=== PATIENT | female | born 1955 | race Asian ===

== ENCOUNTER 2017-04-19 02:06 | Inpatient (IN) | payer BC ==
[~2017-04-19] VITALS: Ht 165.1 cm; Wt 65.4 kg
[~2017-04-19 02:06] MED LIST: INSU100C11 SQ; METF500T4 PO
[2017-04-19] MEDS ORDERED: ACETAMINOPHEN 325MG TABLET PO STA (02:29)
[2017-04-19] MEDS ORDERED: SODIUM CHLORIDE 0.9% 1,000 ML IV ONE (02:29)
[2017-04-19 02:49] LABS: BASOPHILS % 0.4 % (0.0-2.0); EOSINOPHILS % 0.2 % (0.0-5.0); HEMATOCRIT. 31.7 % (36.0-48.0); HEMOGLOBIN. 10.6 g/dL (12.0-16.0); LYMPHOCYTES % 7.3 % (20.0-50.0); MEAN CORPUSCULAR HEMOGLOBIN 30.1 pg (28.0-32.0); MEAN CORPUSCULAR VOLUME 89.8 fL (81.0-99.0); MEAN PLATELET VOLUME 8.6 fl (7.4-10.4); MONOCYTES % 6.3 % (2.0-8.0); NEUTROPHILS % 85.8 % (40.0-76.0); PLATELET 245 x1000/uL (130-400); RED BLOOD CELL COUNT 3.53 mill/uL (4.2-5.4); RED CELL DISTRIBUTION WIDTH 13.9 % (11.6-14.6)
[2017-04-19 02:58] LABS: CHLORIDE 104 mEq/L (98-107)
[2017-04-19 03:06] LABS: CARBON DIOXIDE 18 mEq/L (21-32)
[2017-04-19 03:49] LABS: CLARITY URINE CLOUDY (CLEAR); COLOR URINE YELLOW (YELLOW); KETONES URINE TRACE (NEGATIVE); LEUKOCYTE ESTERASE URINE 2+ (NEGATIVE); NITRITE URINE NEGATIVE (NEGATIVE); OCCULT BLOOD URINE 2+ (NEGATIVE); PH URINE 5.5 (4.5-8.0); PROTEIN URINE 3+ (NEGATIVE); SPECIFIC GRAVITY URINE 1.016 (1.005-1.030); UROBILINOGEN URINE 0.2 E.U./dL (0.2-1.0)
[2017-04-19] MEDS ORDERED: CEFTRIAXONE 1 G PREMIX 50 ML IV ONE (05:15)
[2017-04-19 07:02] LABS: GLUCOSE CSF 121 mg/dL (41-75)
[2017-04-19] MEDS ORDERED: AMLO10TA4 PO (09:11)
[2017-04-19] MEDS ORDERED: LOSA25TA12 PO (09:11)
[2017-04-19] MEDS ORDERED: MAGNESIUM HYDROXIDE 400MG/5ML 30ML UDC PO PRN (09:45)
[2017-04-19] MEDS ORDERED: ONDANSETRON HCL 4MG TABLET PO PRN (09:45)
[2017-04-19] MEDS ORDERED: DEXTROSE 50% WATER 50ML SYRINGE IV PRN (10:45)
[2017-04-19] MEDS: LOSARTAN POTASSIUM 25 MG TABLET PO SCH (10:56)
[2017-04-19] MEDS: AMLODIPINE 10MG TABLET PO SCH (10:57)
[2017-04-19] MEDS ORDERED: LEVOFLOXACIN 500MG PREMIX 100 ML IV SCH (12:00)
[2017-04-19] MEDS: ACETAMINOPHEN 325MG TABLET PO PRN ×2 (12:09→20:13)
[2017-04-19] MEDS: BLOOD SUGAR DIAGNOSTIC STRIP TEST SCH ×3 (12:11→20:17)
[2017-04-19] MEDS ORDERED: INSULIN LISPRO 100 UNITS/ML SUBCUT SCH (13:10)
[2017-04-19 14:28] LABS: CLARITY URINE CLOUDY (CLEAR); COLOR URINE YELLOW (YELLOW); KETONES URINE NEGATIVE (NEGATIVE); LEUKOCYTE ESTERASE URINE 2+ (NEGATIVE); NITRITE URINE POSITIVE (NEGATIVE); OCCULT BLOOD URINE 2+ (NEGATIVE); PH URINE 5.5 (4.5-8.0); PROTEIN URINE 2+ (NEGATIVE); SPECIFIC GRAVITY URINE 1.016 (1.005-1.030); UROBILINOGEN URINE 0.2 E.U./dL (0.2-1.0)
[2017-04-19] MEDS: METFORMIN HCL 500MG TABLET PO SCH (17:46)
[2017-04-19] MEDS: INSULIN LISPRO 100 UNITS/ML SUBCUT SCH ×2 (17:47→20:42)
[2017-04-19] MEDS: SODIUM CHL 0.45% + KCL 20MEQ/L 1,000 ML IV SCH (17:47)
[2017-04-19] MEDS ORDERED: VANCOMYCIN 1,250 MG in DEXT 5% WATER 250 ML IV SCH (18:45)
[2017-04-19] MEDS: ZOLPIDEM TARTRATE 5MG TABLET PO PRN (21:21)
[2017-04-20] MEDS: ACETAMINOPHEN 325MG TABLET PO PRN ×3 (04:55→20:39)
[2017-04-20] MEDS: SODIUM CHL 0.45% + KCL 20MEQ/L 1,000 ML IV SCH ×2 (04:56→20:25)
[2017-04-20 06:04] LABS: BASOPHILS % 0.5 % (0.0-2.0); EOSINOPHILS % 0.5 % (0.0-5.0); HEMATOCRIT. 28.7 % (36.0-48.0); HEMOGLOBIN. 9.7 g/dL (12.0-16.0); LYMPHOCYTES % 11.7 % (20.0-50.0); MEAN CORPUSCULAR HEMOGLOBIN 30.4 pg (28.0-32.0); MEAN PLATELET VOLUME 9.2 fl (7.4-10.4); MONOCYTES % 9.7 % (2.0-8.0); NEUTROPHILS % 77.6 % (40.0-76.0); PLATELET 229 x1000/uL (130-400); RED BLOOD CELL COUNT 3.18 mill/uL (4.2-5.4)
[2017-04-20] MEDS: BLOOD SUGAR DIAGNOSTIC STRIP TEST SCH ×4 (07:03→20:33)
[2017-04-20] MEDS: INSULIN LISPRO 100 UNITS/ML SUBCUT SCH ×4 (08:10→20:38)
[2017-04-20] MEDS: METFORMIN HCL 500MG TABLET PO SCH (08:40)
[2017-04-20] MEDS: AMLODIPINE 10MG TABLET PO SCH (08:40)
[2017-04-20] MEDS: LOSARTAN POTASSIUM 25 MG TABLET PO SCH (08:40)
[2017-04-20 09:26] LABS: CHLORIDE 109 mEq/L (98-107)
[2017-04-20 09:42] LABS: CARBON DIOXIDE 19 mEq/L (21-32); HDL CHOLESTEROL 29 mg/dL (40-59); LDL CHOLESTEROL 113 mg/dL (5-100); T4 FREE 1.16 ng/dL (0.76-1.46); TOTAL IRON BINDING CAPACITY 134 ug/dL (250-450)
[2017-04-20] MEDS ORDERED: ALPRAZOLAM 0.5 MG TABLET PO PRN (10:45)
[2017-04-20] MEDS ORDERED: MAGNESIUM 4 G PREMIX 100 ML IV NR (11:00)
[2017-04-20 11:15] LABS: BG BASE EXCESS -13.3 mmol/L (-2.0-2.0); BG CARBOXYHEMOGLOBIN 0.3 % (0.5-1.5); BG FRACTION INSPIRED OXYGEN 100; BG HCO3 ACT 13.3 mmol/L (22.0-26.0); BG METHEMOGLOBIN 0.3 % (0.0-1.5); BG OXYHEMOGLOBIN 98.4 % (94.0-97.0); BG PCO2 33.2 mmHg (35.0-45.0); BG PO2 223.3 mmHg (75.0-100.0); BG SAMPLE SITE RIGHT RADIAL; BG VENT MODE MASK - NRB
[2017-04-20] MEDS ORDERED: DIATR MEGLU/DIATRIZOATE SOLN 30ML PO NR (11:30)
[2017-04-20] MEDS ORDERED: SODIUM BICARBONATE 8.4% 1 MEQ/ML 50ML SYR IV NR (11:39)
[2017-04-20] MEDS ORDERED: LEVOFLOXACIN 250MG PREMIX 50 ML IV SCH (12:00)
[2017-04-20] MEDS ORDERED: VANCOMYCIN 750 MG PREMIX 150 ML IV SCH (12:00)
[2017-04-20] MEDS ORDERED: POTASSIUM PHOS,M-BASIC-D-BASIC 30 MMOL in DEXT 5% WATER 500 ML IV NR (12:00)
[2017-04-20] MEDS: CEFAZOLIN 1000MG PREMIX 50 ML IV SCH ×2 (13:56→20:23)
[2017-04-20 21:18] LABS: HEMATOCRIT. 25.6 % (36.0-48.0); HEMOGLOBIN. 8.7 g/dL (12.0-16.0); MEAN CORPUSCULAR HEMOGLOBIN 30.1 pg (28.0-32.0); MEAN CORPUSCULAR VOLUME 88.2 fL (81.0-99.0); PLATELET 199 x1000/uL (130-400); RED CELL DISTRIBUTION WIDTH 14.1 % (11.6-14.6)
[2017-04-20 21:37] LABS: AMMONIA 31 uMol/L (<32)
[2017-04-20 21:47] LABS: CLARITY URINE CLEAR (CLEAR); COLOR URINE YELLOW (YELLOW); KETONES URINE NEGATIVE (NEGATIVE); LEUKOCYTE ESTERASE URINE TRACE (NEGATIVE); NITRITE URINE NEGATIVE (NEGATIVE); OCCULT BLOOD URINE 1+ (NEGATIVE); PROTEIN URINE 2+ (NEGATIVE); SPECIFIC GRAVITY URINE 1.011 (1.005-1.030); UROBILINOGEN URINE 0.2 E.U./dL (0.2-1.0)
[2017-04-20] MEDS: ZOLPIDEM TARTRATE 5MG TABLET PO PRN (21:47)
[2017-04-20 21:56] LABS: PLATELET ESTIMATE NORMAL
[2017-04-20] MEDS ORDERED: INSULIN DETEMIR UD 100 UNITS/ML SYR SUBCUT SCH (22:00)
[2017-04-21] MEDS: SODIUM CHL 0.45% + KCL 20MEQ/L 1,000 ML IV SCH ×3 (01:00→20:16)
[2017-04-21] MEDS: ACETAMINOPHEN 325MG TABLET PO PRN ×4 (03:10→21:45)
[2017-04-21] MEDS: CEFAZOLIN 1000MG PREMIX 50 ML IV SCH (03:13)
[2017-04-21 07:10] LABS: BASOPHILS % 0.4 % (0.0-2.0); EOSINOPHILS % 0.6 % (0.0-5.0); HEMATOCRIT. 26.5 % (36.0-48.0); HEMOGLOBIN. 8.9 g/dL (12.0-16.0); LYMPHOCYTES % 14.1 % (20.0-50.0); MEAN CORPUSCULAR HEMOGLOBIN 29.5 pg (28.0-32.0); MEAN CORPUSCULAR VOLUME 87.8 fL (81.0-99.0); MONOCYTES % 14.6 % (2.0-8.0); NEUTROPHILS % 70.3 % (40.0-76.0); PLATELET 228 x1000/uL (130-400); RED BLOOD CELL COUNT 3.02 mill/uL (4.2-5.4); RED CELL DISTRIBUTION WIDTH 14.1 % (11.6-14.6)
[2017-04-21] MEDS: INSULIN LISPRO 100 UNITS/ML SUBCUT SCH ×4 (08:00→21:31)
[2017-04-21] MEDS: BLOOD SUGAR DIAGNOSTIC STRIP TEST SCH ×4 (08:00→20:40)
[2017-04-21 08:31] LABS: CARBON DIOXIDE 22 mEq/L (21-32); CHLORIDE 106 mEq/L (98-107); PHOSPHORUS 3.3 mg/dL (2.5-4.9)
[2017-04-21 08:34] LABS: HDL CHOLESTEROL 20 mg/dL (40-59); LDL CHOLESTEROL 87 mg/dL (5-100)
[2017-04-21] MEDS: LOSARTAN POTASSIUM 25 MG TABLET PO SCH (09:12)
[2017-04-21] MEDS: AMLODIPINE 10MG TABLET PO SCH (09:13)
[2017-04-21 09:50] LABS: BG BASE EXCESS -2.1 mmol/L (-2.0-2.0); BG CARBOXYHEMOGLOBIN 0.3 % (0.5-1.5); BG DEOXYHEMOGLOBIN 11.4 % (0.0-5.0); BG FRACTION INSPIRED OXYGEN 21; BG HCO3 ACT 20.5 mmol/L (22.0-26.0); BG METHEMOGLOBIN 0.3 % (0.0-1.5); BG OXYGEN SATURATION 88.5 % (92.0-98.5); BG PCO2 27.9 mmHg (35.0-45.0); BG PH 7.484 (7.350-7.450); BG SAMPLE SITE RIGHT RADIAL; BG TOTAL HEMOGLOBIN 10.3 g/dL (12.0-18.0); BG VENT MODE ROOM AIR
[2017-04-21] MEDS ORDERED: LEVOFLOXACIN 750MG PREMIX 150 ML IV SCH (13:00)
[2017-04-21] MEDS: MORPHINE SULFATE 2 MG/ML CPJ (NOT FOR IM USE) IV PRN ×2 (13:08→19:05)
[2017-04-21] MEDS ORDERED: IPRATROPIUM/ALBUTEROL 0.5-3(2.5)MG/3ML NEB HHN PRN (13:30)
[2017-04-21] MEDS ORDERED: VANCOMYCIN 1250MG in DEXTROSE 5% WATER 250ML IV SCH (15:00)
[2017-04-21] MEDS: PIPERACILLIN/TAZ 3.375G PREMIX 50 ML IV SCH (17:39)
[2017-04-21] MEDS: IPRATROPIUM/ALBUTEROL 0.5-3(2.5)MG/3ML NEB HHN SCH (20:37)
[2017-04-21] MEDS: ATORVASTATIN CALCIUM 20MG TABLET PO SCH (21:29)
[2017-04-21] MEDS: INSULIN DETEMIR UD 100 UNITS/ML SYR SUBCUT SCH (21:33)
[2017-04-21] MEDS: VANCOMYCIN 750 MG PREMIX 150 ML IV SCH (23:28)
[2017-04-22] MEDS: PIPERACILLIN/TAZ 3.375G PREMIX 50 ML IV SCH ×2 (00:33→06:27)
[2017-04-22] MEDS: IPRATROPIUM/ALBUTEROL 0.5-3(2.5)MG/3ML NEB HHN SCH ×3 (01:29→20:47)
[2017-04-22] MEDS: MORPHINE SULFATE 2 MG/ML CPJ (NOT FOR IM USE) IV PRN ×2 (01:52→11:06)
[2017-04-22] MEDS ORDERED: DILTIAZEM HCL 125 MG in DEXT 5% WATER 100 ML IV SCH (06:30)
[2017-04-22 06:37] LABS: BG BASE EXCESS -1.2 mmol/L (-2.0-2.0); BG CARBOXYHEMOGLOBIN 0.1 % (0.5-1.5); BG DEOXYHEMOGLOBIN 4.7 % (0.0-5.0); BG FRACTION INSPIRED OXYGEN 100; BG HCO3 ACT 21.8 mmol/L (22.0-26.0); BG METHEMOGLOBIN 0.3 % (0.0-1.5); BG OXYGEN SATURATION 95.3 % (92.0-98.5); BG OXYHEMOGLOBIN 94.9 % (94.0-97.0); BG PCO2 30.4 mmHg (35.0-45.0); BG PH 7.474 (7.350-7.450); BG PO2 82.4 mmHg (75.0-100.0); BG SAMPLE SITE LEFT RADIAL; BG VENT MODE MASK - NRB
[2017-04-22 07:03] LABS: BASOPHILS % 0.7 % (0.0-2.0); EOSINOPHILS % 1.6 % (0.0-5.0); HEMATOCRIT. 26.6 % (36.0-48.0); HEMOGLOBIN. 9.1 g/dL (12.0-16.0); LYMPHOCYTES % 18.5 % (20.0-50.0); MEAN PLATELET VOLUME 8.8 fl (7.4-10.4); MONOCYTES % 12.7 % (2.0-8.0); NEUTROPHILS % 66.5 % (40.0-76.0); PLATELET 270 x1000/uL (130-400); RED BLOOD CELL COUNT 3.02 mill/uL (4.2-5.4); RED CELL DISTRIBUTION WIDTH 14.3 % (11.6-14.6)
[2017-04-22] MEDS: INSULIN LISPRO 100 UNITS/ML SUBCUT SCH ×4 (07:36→22:10)
[2017-04-22] MEDS: BLOOD SUGAR DIAGNOSTIC STRIP TEST SCH ×4 (07:36→21:00)
[2017-04-22] MEDS: ACETAMINOPHEN 325MG TABLET PO PRN ×3 (08:50→22:13)
[2017-04-22] MEDS: VANCOMYCIN 750 MG PREMIX 150 ML IV SCH (08:50)
[2017-04-22] MEDS: LOSARTAN POTASSIUM 25 MG TABLET PO SCH (08:51)
[2017-04-22] MEDS: AMLODIPINE 10MG TABLET PO SCH (08:51)
[2017-04-22] MEDS ORDERED: MEROPENEM 1,000 MG in SODIUM CHLORIDE 0.9% 100 ML IV SCH (11:00)
[2017-04-22] MEDS: PANTOPRAZOLE SODIUM 40 MG/VIAL IV SCH (11:03)
[2017-04-22] MEDS ORDERED: FUROSEMIDE 40MG/4ML VIAL IVP NR (11:30)
[2017-04-22] MEDS ORDERED: DIGOXIN 500MCG/2ML AMP IV NR (11:30)
[2017-04-22] MEDS ORDERED: ENOXAPARIN 80MG/0.8ML SYR SUBCUT SCH (12:00)
[2017-04-22] MEDS: CEFAZOLIN 1000MG PREMIX 50 ML IV SCH ×2 (12:13→20:10)
[2017-04-22 13:13] LABS: TROPONIN I 0.86 ng/mL (0.00-0.04)
[2017-04-22] MEDS: ASPIRIN 81MG EC TABLET PO SCH ×2 (14:47→17:01)
[2017-04-22] MEDS: DILTIAZEM HCL 30MG TABLET PO SCH (17:01)
[2017-04-22] MEDS: SODIUM CHL 0.45% + KCL 20MEQ/L 1,000 ML IV SCH (18:26)
[2017-04-22] MEDS: ATORVASTATIN CALCIUM 20MG TABLET PO SCH (20:11)
[2017-04-22] MEDS: INSULIN DETEMIR UD 100 UNITS/ML SYR SUBCUT SCH (22:11)
[2017-04-22] MEDS: ZOLPIDEM TARTRATE 5MG TABLET PO PRN (22:11)
[2017-04-23 04:43] LABS: BASOPHILS % 0.7 % (0.0-2.0); EOSINOPHILS % 3.8 % (0.0-5.0); HEMOGLOBIN. 9.3 g/dL (12.0-16.0); LYMPHOCYTES % 24.2 % (20.0-50.0); MEAN CORPUSCULAR HEMOGLOBIN 30.2 pg (28.0-32.0); MEAN PLATELET VOLUME 8.5 fl (7.4-10.4); MONOCYTES % 12.6 % (2.0-8.0); NEUTROPHILS % 58.7 % (40.0-76.0); PLATELET 313 x1000/uL (130-400); RED BLOOD CELL COUNT 3.07 mill/uL (4.2-5.4); RED CELL DISTRIBUTION WIDTH 14.4 % (11.6-14.6)
[2017-04-23] MEDS: CEFAZOLIN 1000MG PREMIX 50 ML IV SCH ×3 (04:48→22:09)
[2017-04-23 05:12] LABS: CARBON DIOXIDE 26 mEq/L (21-32); CHLORIDE 106 mEq/L (98-107); CREATINE KINASE 23 IU/L (26-192); CREATINE KINASE MB FRACTION < 0.5 ng/mL (0.5-3.6)
[2017-04-23] MEDS: INSULIN LISPRO 100 UNITS/ML SUBCUT SCH ×4 (06:46→20:45)
[2017-04-23] MEDS: BLOOD SUGAR DIAGNOSTIC STRIP TEST SCH ×4 (06:47→20:47)
[2017-04-23] MEDS: DILTIAZEM HCL 30MG TABLET PO SCH ×4 (06:52→17:23)
[2017-04-23] MEDS ORDERED: POTASSIUM CHLORIDE 20MEQ TABLET SR PO NR (07:45)
[2017-04-23] MEDS: AMLODIPINE 10MG TABLET PO SCH (08:14)
[2017-04-23] MEDS: LOSARTAN POTASSIUM 25 MG TABLET PO SCH (08:14)
[2017-04-23] MEDS: PANTOPRAZOLE SODIUM 40 MG/VIAL IV SCH (08:14)
[2017-04-23] MEDS: ASPIRIN 81MG EC TABLET PO SCH ×2 (08:14→17:23)
[2017-04-23] MEDS: IPRATROPIUM/ALBUTEROL 0.5-3(2.5)MG/3ML NEB HHN SCH ×4 (08:21→21:31)
[2017-04-23] MEDS: ENOXAPARIN 40MG/0.4ML SYR SUBCUT SCH (08:29)
[2017-04-23] MEDS: ACETAMINOPHEN 325MG TABLET PO PRN ×3 (08:30→22:10)
[2017-04-23] MEDS ORDERED: ENOXAPARIN 40MG/0.4ML SYR SUBCUT SCH (09:30)
[2017-04-23] MEDS ORDERED: CLONIDINE 0.1MG TABLET PO PRN (10:15)
[2017-04-23] MEDS ORDERED: MORPHINE SULFATE 4 MG/ML CPJ (NOT FOR IM USE) IV PRN (20:12)
[2017-04-23] MEDS: ATORVASTATIN CALCIUM 20MG TABLET PO SCH (20:31)
[2017-04-23] MEDS: INSULIN DETEMIR UD 100 UNITS/ML SYR SUBCUT SCH (20:46)
[2017-04-23] MEDS: ZOLPIDEM TARTRATE 5MG TABLET PO PRN (22:09)
[2017-04-24] MEDS: DILTIAZEM HCL 30MG TABLET PO SCH ×4 (00:13→18:29)
[2017-04-24] MEDS: IPRATROPIUM/ALBUTEROL 0.5-3(2.5)MG/3ML NEB HHN SCH ×4 (01:27→21:23)
[2017-04-24] MEDS: CEFAZOLIN 1000MG PREMIX 50 ML IV SCH ×3 (04:37→21:37)
[2017-04-24] MEDS: BLOOD SUGAR DIAGNOSTIC STRIP TEST SCH ×4 (06:00→21:42)
[2017-04-24] MEDS: INSULIN LISPRO 100 UNITS/ML SUBCUT SCH ×4 (06:00→21:53)
[2017-04-24 06:19] LABS: BASOPHILS % 1.2 % (0.0-2.0); EOSINOPHILS % 4.2 % (0.0-5.0); HEMATOCRIT. 28.5 % (36.0-48.0); HEMOGLOBIN. 9.7 g/dL (12.0-16.0); LYMPHOCYTES % 26.2 % (20.0-50.0); MEAN CORPUSCULAR HEMOGLOBIN 30.1 pg (28.0-32.0); MEAN CORPUSCULAR VOLUME 88.8 fL (81.0-99.0); MEAN PLATELET VOLUME 7.8 fl (7.4-10.4); MONOCYTES % 10.5 % (2.0-8.0); NEUTROPHILS % 57.9 % (40.0-76.0); PLATELET 434 x1000/uL (130-400); RED CELL DISTRIBUTION WIDTH 14.3 % (11.6-14.6)
[2017-04-24 07:50] LABS: TROPONIN I 0.41 ng/mL (0.00-0.04)
[2017-04-24] MEDS: ENOXAPARIN 40MG/0.4ML SYR SUBCUT SCH (08:46)
[2017-04-24] MEDS: PANTOPRAZOLE SODIUM 40 MG/VIAL IV SCH (08:46)
[2017-04-24] MEDS: ASPIRIN 81MG EC TABLET PO SCH ×2 (08:47→16:47)
[2017-04-24] MEDS: LOSARTAN POTASSIUM 25 MG TABLET PO SCH (08:47)
[2017-04-24] MEDS: AMLODIPINE 10MG TABLET PO SCH (08:47)
[2017-04-24] MEDS: ACETAMINOPHEN 325MG TABLET PO PRN ×3 (08:51→21:37)
[2017-04-24] MEDS: ATORVASTATIN CALCIUM 20MG TABLET PO SCH (21:37)
[2017-04-24] MEDS: INSULIN DETEMIR UD 100 UNITS/ML SYR SUBCUT SCH (21:42)
[2017-04-24] MEDS ORDERED: ZOLPIDEM TARTRATE 5MG TABLET PO PRN (21:45)
[2017-04-25] MEDS: IPRATROPIUM/ALBUTEROL 0.5-3(2.5)MG/3ML NEB HHN SCH ×3 (01:30→13:29)
[2017-04-25] MEDS: CEFAZOLIN 1000MG PREMIX 50 ML IV SCH ×2 (04:12→12:44)
[2017-04-25] MEDS: DILTIAZEM HCL 30MG TABLET PO SCH ×4 (04:12→17:54)
[2017-04-25] MEDS: ACETAMINOPHEN 325MG TABLET PO PRN ×2 (06:08→14:56)
[2017-04-25] MEDS: INSULIN LISPRO 100 UNITS/ML SUBCUT SCH ×3 (06:20→17:59)
[2017-04-25] MEDS: BLOOD SUGAR DIAGNOSTIC STRIP TEST SCH ×3 (06:20→17:08)
[2017-04-25 07:33] LABS: HEMATOCRIT. 29.9 % (36.0-48.0); MEAN CORPUSCULAR HEMOGLOBIN 29.8 pg (28.0-32.0); MEAN CORPUSCULAR VOLUME 88.9 fL (81.0-99.0); MEAN PLATELET VOLUME 7.6 fl (7.4-10.4); PLATELET 501 x1000/uL (130-400); RED BLOOD CELL COUNT 3.36 mill/uL (4.2-5.4); RED CELL DISTRIBUTION WIDTH 14.4 % (11.6-14.6)
[2017-04-25] MEDS: PANTOPRAZOLE SODIUM 40 MG/VIAL IV SCH (09:24)
[2017-04-25] MEDS: ENOXAPARIN 40MG/0.4ML SYR SUBCUT SCH (09:25)
[2017-04-25] MEDS: ASPIRIN 81MG EC TABLET PO SCH ×2 (09:29→17:58)
[2017-04-25] MEDS: LOSARTAN POTASSIUM 25 MG TABLET PO SCH (09:29)
[2017-04-25] MEDS: AMLODIPINE 10MG TABLET PO SCH (09:32)
[2017-04-25 12:55] LABS: PLATELET ESTIMATE INCREASED
[2017-04-25 18:30] VITALS: BP 128/88
[2017-04-26] MEDS ORDERED: FAMOTIDINE 20MG/2ML VIAL IV SCH (09:00)
== END 2017-04-25 19:00 | disposition home health service (06) | DRG 871 ==
LOC: ER 02:06 → EDBEDREQ 05:39 → 7WST 06:00 → ENRESERV 07:10 → 5EST 04-20 11:39 → MICUSO 04-22 07:56 → 5WST 04-23 12:45
PROVIDERS: ADMIT Internal Medicine; ATTEND Internal Medicine
PROC: 009U3ZZ Drainage of Spinal Canal, Percutaneous Approach (ICD-10-PCS; principal; 2017-04-19)
PROC: 02HV33Z Insertion of Infusion Device into Superior Vena Cava, Percutaneous Approach (ICD-10-PCS; 2017-04-22)
PROC: B548ZZA Ultrasonography of Superior Vena Cava, Guidance (ICD-10-PCS; 2017-04-22)
DX: A41.51 Sepsis due to Escherichia coli [E. coli] (principal); E43 Unspecified severe protein-calorie malnutrition; J18.1 Lobar pneumonia, unspecified organism; E87.2 Acidosis; J81.1 Chronic pulmonary edema; J90 Pleural effusion, not elsewhere classified; N12 Tubulo-interstitial nephritis, not specified as acute or chronic; D64.9 Anemia, unspecified; E11.65 Type 2 diabetes mellitus with hyperglycemia; I34.0 Nonrheumatic mitral (valve) insufficiency; E11.69 Type 2 diabetes mellitus with other specified complication; E78.5 Hyperlipidemia, unspecified; N28.9 Disorder of kidney and ureter, unspecified; R65.20 Severe sepsis without septic shock; E87.6 Hypokalemia; E87.70 Fluid overload, unspecified; I10 Essential (primary) hypertension; I48.0 Paroxysmal atrial fibrillation; K76.0 Fatty (change of) liver, not elsewhere classified; Z79.84 Long term (current) use of oral hypoglycemic drugs; Z79.899 Other long term (current) drug therapy; Z91.14 Patient's other noncompliance with medication regimen; Z68.24 Body mass index [BMI] 24.0-24.9, adult
CPT/HCPCS: 36415; 36569; 36600; 70450; 70544; 70553; 71010; 74176; 76700; 76856; 76937; 78580; 80048; 80053; 80061; 80076; 81001; 82140; 82248; 82375; 82550; 82553; 82805; 82945; 82962; 83036; 83540; 83550; 83605; 83735; 83880; 84100; 84157; 84439; 84443; 84481; 84484; 84550; 85007; 85025; 85027; 85379; 85651; 87040; 87070; 87077; 87086; 87186; 87205; 89050; 93005; 93306; 93970; 94640; 96361; 96365; 97162; 99291; C1725; C9113; J0690; J0696; J1160; J1650; J1815; J1940; J1956; J2185; J2270; J2543; J3370; J3475; J3480; J3490; J7030; J7040; J7050; J7060; J7620; Q9963

== ENCOUNTER → 2017-05-13 | Outpatient (CLI) | payer BC ==
[~2017-05-13] MED LIST changes: +AMLO10TA4 PO; -INSU100C11 SQ; +LOSA25TA12 PO
[2017-05-13 12:43] LABS: BASOPHILS % 1.2 % (0.0-2.0); EOSINOPHILS % 6.1 % (0.0-5.0); HEMATOCRIT. 32.7 % (36.0-48.0); LYMPHOCYTES % 30.9 % (20.0-50.0); MEAN CORPUSCULAR HEMOGLOBIN 30.6 pg (28.0-32.0); MEAN CORPUSCULAR VOLUME 91.1 fL (81.0-99.0); MEAN PLATELET VOLUME 8.6 fl (7.4-10.4); MONOCYTES % 6.7 % (2.0-8.0); NEUTROPHILS % 55.1 % (40.0-76.0); PLATELET 332 x1000/uL (130-400); RED BLOOD CELL COUNT 3.58 mill/uL (4.2-5.4); RED CELL DISTRIBUTION WIDTH 15.1 % (11.6-14.6)
[2017-05-13 13:26] LABS: CARBON DIOXIDE 23 mEq/L (21-32); CHLORIDE 106 mEq/L (98-107); HDL CHOLESTEROL 61 mg/dL (40-59); LDL CHOLESTEROL 94 mg/dL (5-100)
== END | disposition home or self-care (01) ==
LOC: LAB 12:08
PROVIDERS: ATTEND Pathology Anatomic Pathology & Clinical Pathology
DX: I10 Essential (primary) hypertension (principal); E11.9 Type 2 diabetes mellitus without complications; E78.2 Mixed hyperlipidemia
CPT/HCPCS: 36415; 80053; 80061; 82248; 82306; 83036; 84439; 84443; 85025

== ENCOUNTER → 2018-01-21 | Outpatient (CLI) | payer BC ==
[2018-01-21 09:52] LABS: HEMATOCRIT. 35.7 % (36.0-48.0); HEMOGLOBIN. 12.4 g/dL (12.0-16.0); LYMPHOCYTES % 26.5 % (20.0-50.0); MEAN CORPUSCULAR HEMOGLOBIN 30.1 pg (28.0-32.0); MEAN CORPUSCULAR VOLUME 87.1 fL (81.0-99.0); MEAN PLATELET VOLUME 7.5 fl (7.4-10.4); NEUTROPHILS % 59.5 % (40.0-76.0); PLATELET 479 x1000/uL (130-400); RED CELL DISTRIBUTION WIDTH 13.9 % (11.6-14.6)
[2018-01-21 10:24] LABS: CHLORIDE 104 mEq/L (98-107)
[2018-01-21 10:39] LABS: HDL CHOLESTEROL 63 mg/dL (40-59); LDL CHOLESTEROL 162 mg/dL (5-100); T4 FREE 1.09 ng/dL (0.76-1.46)
[2018-01-21 10:56] LABS: KETONES URINE NEGATIVE (NEGATIVE); LEUKOCYTE ESTERASE URINE NEGATIVE (NEGATIVE); NITRITE URINE NEGATIVE (NEGATIVE); OCCULT BLOOD URINE TRACE (NEGATIVE); PROTEIN URINE 3+ (NEGATIVE); SPECIFIC GRAVITY URINE 1.015 (1.005-1.030); UROBILINOGEN URINE 0.2 E.U./dL (0.2-1.0)
[2018-01-21 11:25] LABS: CLARITY URINE CLOUDY (CLEAR)
[2018-01-21 11:32] LABS: COLOR URINE YELLOW (YELLOW)
[2018-01-22 13:07] LABS: *CREATININE RANDOM URINE 69.5 mg/dL (Not Estab.); MICROALBUMIN RANDOM URINE 3268.8 ug/mL (Not Estab.)
== END | disposition home or self-care (01) ==
LOC: LAB 09:14
PROVIDERS: ATTEND Internal Medicine
DX: J18.9 Pneumonia, unspecified organism (principal); D71 Functional disorders of polymorphonuclear neutrophils; E11.9 Type 2 diabetes mellitus without complications
CPT/HCPCS: 36415; 71046; 80053; 80061; 81003; 82043; 82248; 82570; 83036; 84439; 84443; 85025

== ENCOUNTER 2018-10-17 13:17 | Inpatient (IN) | payer BC ==
[~2018-10-17] VITALS: Ht 165.1 cm; Wt 60.8 kg
[~2018-10-17 13:17] MED LIST changes: +METF-414 PO; -METF500T4 PO
[2018-10-17] MEDS ORDERED: SODIUM CHLORIDE 0.9% 1000ML BAG (SEPSIS BOLUS) IV ONE (14:15)
[2018-10-17 14:55] LABS: BASOPHILS % 0.4 % (0.0-2.0); EOSINOPHILS % 0.5 % (0.0-5.0); LYMPHOCYTES % 15.8 % (20.0-50.0); MEAN CORPUSCULAR HEMOGLOBIN 29.8 pg (28.0-32.0); MEAN CORPUSCULAR VOLUME 89.3 fL (81.0-99.0); MEAN PLATELET VOLUME 8.8 fl (7.4-10.4); NEUTROPHILS % 72.3 % (40.0-76.0); PLATELET 308 x1000/uL (130-400); RED CELL DISTRIBUTION WIDTH 13.8 % (11.6-14.6)
[2018-10-17 14:58] LABS: CHLORIDE 99 mEq/L (98-107)
[2018-10-17 15:00] LABS: PARTIAL THROMBOPLASTIN TIME 36.2 sec (23.4-31.0); PROTHROMBIN TIME 10.1 sec (9.1-11.1)
[2018-10-17 15:14] LABS: CLARITY URINE TURBID (CLEAR); COLOR URINE YELLOW (YELLOW); KETONES URINE TRACE (NEGATIVE); LEUKOCYTE ESTERASE URINE 2+ (NEGATIVE); NITRITE URINE NEGATIVE (NEGATIVE); OCCULT BLOOD URINE 2+ (NEGATIVE); PH URINE 5.5 (4.5-8.0); PROTEIN URINE 4+ (NEGATIVE); SPECIFIC GRAVITY URINE 1.031 (1.005-1.030); UROBILINOGEN URINE 0.2 E.U./dL (0.2-1.0)
[2018-10-17] MEDS ORDERED: LEVOFLOXACIN 750MG PREMIX 150 ML IV ONE (17:15)
[2018-10-17 21:20] VITALS: BP 147/69
[2018-10-17 22:00] VITALS: BP 147/69
[2018-10-17] MEDS ORDERED: DIPHENHYDRAMINE 50MG/ML VIAL IV PRN (23:00)
[2018-10-17] MEDS ORDERED: DOCUSATE SODIUM 100MG CAPSULE PO PRN (23:00)
[2018-10-17] MEDS ORDERED: ONDANSETRON HCL 4MG/2ML INJ IV PRN (23:00)
[2018-10-17] MEDS ORDERED: MAGNESIUM/ALUMINUM HYDROXIDE/SIMETHICONE 30ML UDC PO PRN (23:00)
[2018-10-17] MEDS ORDERED: LEVOFLOXACIN 500MG PREMIX 100 ML IV SCH (23:00)
[2018-10-17] MEDS ORDERED: CLONIDINE 0.1MG TABLET PO PRN (23:00)
[2018-10-17] MEDS ORDERED: DEXT 5%/0.45% NACL 1000ML 1,000 ML IV SCH (23:13)
[2018-10-18] VITALS (7 sets, daily range): BP systolic 104–174; BP diastolic 56–97
[2018-10-18] MEDS ORDERED: DEXTROSE 50% WATER 50ML SYRINGE IV PRN
[2018-10-18] MEDS: ACETAMINOPHEN 325MG TABLET PO PRN ×3 (00:15→19:16)
[2018-10-18] MEDS ORDERED: METF-416 PO (02:38)
[2018-10-18] MEDS ORDERED: INSU300I3 SQ (02:38)
[2018-10-18] MEDS ORDERED: LOSA100T14 PO (02:38)
[2018-10-18 06:56] LABS: HEMATOCRIT. 28.8 % (36.0-48.0); HEMOGLOBIN. 9.8 g/dL (12.0-16.0); MEAN CORPUSCULAR HEMOGLOBIN 30.1 pg (28.0-32.0); MEAN CORPUSCULAR VOLUME 88.9 fL (81.0-99.0); MEAN PLATELET VOLUME 9.1 fl (7.4-10.4); PLATELET 270 x1000/uL (130-400); RED BLOOD CELL COUNT 3.24 mill/uL (4.2-5.4); RED CELL DISTRIBUTION WIDTH 13.8 % (11.6-14.6)
[2018-10-18] MEDS: BLOOD SUGAR DIAGNOSTIC STRIP TEST SCH ×4 (07:00→21:28)
[2018-10-18] MEDS: INSULIN LISPRO 100 UNITS/ML SUBCUT SCH ×4 (08:53→21:00)
[2018-10-18] MEDS ORDERED: ENOXAPARIN 40MG/0.4ML SYR SUBCUT SCH (09:00)
[2018-10-18] MEDS ORDERED: ENOXAPARIN 30MG/0.3ML SYR SUBCUT SCH (09:00)
[2018-10-18] MEDS ORDERED: PNEUMOCOCCAL 23-VAL P-SAC VAC 0.5 ML IM ONE (12:00)
[2018-10-18 12:20] LABS: PLATELET ESTIMATE NORMAL
[2018-10-18] MEDS: DEXT 5%/0.45% NACL 1000ML 1,000 ML IV SCH (13:34)
[2018-10-18] MEDS: CEFTAZIDIME PENTAHYDRATE 1 G in DEXTROSE 5% WATER 50 ML IV SCH (15:58)
[2018-10-18] MEDS ORDERED: LEVOFLOXACIN 250MG PREMIX 50 ML IV SCH (17:00)
[2018-10-19] VITALS (7 sets, daily range): BP systolic 106–156; BP diastolic 57–97
[2018-10-19] MEDS: CEFTAZIDIME PENTAHYDRATE 1 G in DEXTROSE 5% WATER 50 ML IV SCH ×3 (00:35→20:52)
[2018-10-19] MEDS: DEXT 5%/0.45% NACL 1000ML 1,000 ML IV SCH ×2 (03:57→18:16)
[2018-10-19] MEDS: BLOOD SUGAR DIAGNOSTIC STRIP TEST SCH ×4 (06:15→21:00)
[2018-10-19 07:27] LABS: BASOPHILS % 0.8 % (0.0-2.0); EOSINOPHILS % 2.4 % (0.0-5.0); HEMATOCRIT. 28.4 % (36.0-48.0); HEMOGLOBIN. 9.6 g/dL (12.0-16.0); LYMPHOCYTES % 13.2 % (20.0-50.0); MEAN CORPUSCULAR HEMOGLOBIN 30.1 pg (28.0-32.0); MEAN CORPUSCULAR VOLUME 89.1 fL (81.0-99.0); MONOCYTES % 10.3 % (2.0-8.0); NEUTROPHILS % 73.3 % (40.0-76.0); PLATELET 299 x1000/uL (130-400); RED BLOOD CELL COUNT 3.18 mill/uL (4.2-5.4); RED CELL DISTRIBUTION WIDTH 13.8 % (11.6-14.6)
[2018-10-19] MEDS: ENOXAPARIN 40MG/0.4ML SYR SUBCUT SCH (10:38)
[2018-10-19] MEDS: INSULIN LISPRO 100 UNITS/ML SUBCUT SCH ×4 (10:42→21:00)
[2018-10-19] MEDS ORDERED: INSULIN GLARGINE UD 100 UNITS/ML SYR SUBCUT NR (11:30)
[2018-10-19] MEDS: LOSARTAN POTASSIUM 100 MG TABLET PO SCH (11:38)
[2018-10-19] MEDS: AMLODIPINE 5MG TABLET PO SCH (11:39)
[2018-10-19] MEDS ORDERED: BLOOD SUGAR DIAGNOSTIC STRIP TEST SCH (12:40)
[2018-10-19] MEDS: ACETAMINOPHEN 325MG TABLET PO PRN (17:06)
[2018-10-19] MEDS ORDERED: LEVOFLOXACIN 500MG TABLET PO SCH (20:00)
[2018-10-19] MEDS ORDERED: ATORVASTATIN CALCIUM 40MG TABLET PO SCH (21:00)
[2018-10-20] VITALS: BP 136/66
[2018-10-20 04:00] VITALS: BP 132/63
[2018-10-20] MEDS: DEXT 5%/0.45% NACL 1000ML 1,000 ML IV SCH (05:36)
[2018-10-20 06:30] LABS: BASOPHILS % 0.8 % (0.0-2.0); EOSINOPHILS % 5.3 % (0.0-5.0); HEMATOCRIT. 28.2 % (36.0-48.0); HEMOGLOBIN. 9.8 g/dL (12.0-16.0); LYMPHOCYTES % 21.1 % (20.0-50.0); MEAN CORPUSCULAR HEMOGLOBIN 30.6 pg (28.0-32.0); MEAN CORPUSCULAR VOLUME 88.7 fL (81.0-99.0); MEAN PLATELET VOLUME 8.6 fl (7.4-10.4); MONOCYTES % 12.7 % (2.0-8.0); NEUTROPHILS % 60.1 % (40.0-76.0); PLATELET 343 x1000/uL (130-400); RED BLOOD CELL COUNT 3.18 mill/uL (4.2-5.4); RED CELL DISTRIBUTION WIDTH 13.9 % (11.6-14.6)
[2018-10-20] MEDS: BLOOD SUGAR DIAGNOSTIC STRIP TEST SCH ×2 (06:48→13:12)
[2018-10-20 08:00] VITALS: BP 159/69
[2018-10-20] MEDS: INSULIN LISPRO 100 UNITS/ML SUBCUT SCH ×2 (08:42→13:11)
[2018-10-20] MEDS: AMLODIPINE 5MG TABLET PO SCH (08:51)
[2018-10-20] MEDS: CEFTAZIDIME PENTAHYDRATE 1 G in DEXTROSE 5% WATER 50 ML IV SCH (08:51)
[2018-10-20] MEDS: LOSARTAN POTASSIUM 100 MG TABLET PO SCH (08:51)
[2018-10-20] MEDS: FERROUS SULFATE 300MG/5ML UDC PO SCH ×2 (08:51→13:20)
[2018-10-20] MEDS: ENOXAPARIN 40MG/0.4ML SYR SUBCUT SCH (08:52)
[2018-10-20] MEDS ORDERED: LEVOFLOXACIN 250MG TABLET PO SCH (11:00)
[2018-10-20 12:00] VITALS: BP 156/75
[2018-10-20 13:58] VITALS: BP 156/75
[2018-10-20] MEDS ORDERED: INSULIN GLARGINE UD 100 UNITS/ML SYR SUBCUT SCH (22:00)
== END 2018-10-20 14:55 | disposition home or self-care (01) | DRG 872 ==
LOC: ER 13:17 → 7WST 17:47 → ENRESERV 19:56
PROVIDERS: ADMIT Internal Medicine; ATTEND Internal Medicine
DX: A41.59 Other Gram-negative sepsis (principal); E87.1 Hypo-osmolality and hyponatremia; N17.9 Acute kidney failure, unspecified; E46 Unspecified protein-calorie malnutrition; N39.0 Urinary tract infection, site not specified; Z68.22 Body mass index [BMI] 22.0-22.9, adult; I48.91 Unspecified atrial fibrillation; Z79.01 Long term (current) use of anticoagulants; E11.9 Type 2 diabetes mellitus without complications; B96.1 Klebsiella pneumoniae [K. pneumoniae] as the cause of diseases classified elsewhere; D64.9 Anemia, unspecified; E11.65 Type 2 diabetes mellitus with hyperglycemia; I10 Essential (primary) hypertension; Z79.4 Long term (current) use of insulin; Z91.19 Patient's noncompliance with other medical treatment and regimen
CPT/HCPCS: 36415; 71045; 76700; 80048; 82962; 83036; 83605; 84145; 84156; 87077; 87186; 87804; 90732; 93005; 93306; 93970; 96365; 96366; 99285; J0713; J1650; J1815; J1956; J3490; J7030; J7060

== ENCOUNTER → 2019-04-06 | Outpatient (CLI) | payer BC ==
[~2019-04-06] MED LIST changes: -AMLO10TA4 PO; +INSU300I3 SQ; +LOSA100T32 PO; -LOSA25TA12 PO; -METF-414 PO; +METF-416 PO
[2019-04-06 15:01] LABS: CHLORIDE 103 mEq/L (98-107)
[2019-04-06 15:10] LABS: LDL CHOLESTEROL 70 mg/dL (5-100)
[2019-04-06 15:11] LABS: HDL CHOLESTEROL 55 mg/dL (40-59)
[2019-04-06 15:12] LABS: BASOPHILS % 0.6 % (0.0-2.0); EOSINOPHILS % 1.7 % (0.0-5.0); HEMATOCRIT. 36.6 % (36.0-48.0); HEMOGLOBIN. 12.2 g/dL (12.0-16.0); MEAN CORPUSCULAR HEMOGLOBIN 30.8 pg (28.0-32.0); MEAN CORPUSCULAR VOLUME 92.4 fL (81.0-99.0); MEAN PLATELET VOLUME 8.2 fl (7.4-10.4); MONOCYTES % 6.9 % (2.0-8.0); NEUTROPHILS % 65.8 % (40.0-76.0); PLATELET 411 x1000/uL (130-400); RED BLOOD CELL COUNT 3.96 mill/uL (4.2-5.4); RED CELL DISTRIBUTION WIDTH 13.6 % (11.6-14.6)
[2019-04-07 09:08] LABS: *CREATININE RANDOM URINE 76.5 mg/dL (Not Estab.)
[2019-04-07 10:11] LABS: MICROALBUMIN RANDOM URINE 2407.2 ug/mL (Not Estab.)
== END | disposition home or self-care (01) ==
LOC: LAB 14:13
PROVIDERS: ATTEND Internal Medicine
DX: E78.5 Hyperlipidemia, unspecified (principal); E11.9 Type 2 diabetes mellitus without complications; I10 Essential (primary) hypertension
CPT/HCPCS: 36415; 80061; 80076; 82043; 82570; 83036; 84439; 84443

== ENCOUNTER → 2019-09-13 | Outpatient (CLI) | payer SELFPAY ==
[2019-09-13 18:07] LABS: BASOPHILS % 0.8 % (0.0-2.0); EOSINOPHILS % 3.4 % (0.0-5.0); HEMATOCRIT. 37.6 % (36.0-48.0); HEMOGLOBIN. 12.6 g/dL (12.0-16.0); LYMPHOCYTES % 31.4 % (20.0-50.0); MEAN CORPUSCULAR HEMOGLOBIN 30.7 pg (28.0-32.0); MEAN CORPUSCULAR VOLUME 91.6 fL (81.0-99.0); MONOCYTES % 6.4 % (2.0-8.0); PLATELET 334 x1000/uL (130-400); RED CELL DISTRIBUTION WIDTH 13.9 % (11.6-14.6)
[2019-09-13 18:10] LABS: CHLORIDE 105 mEq/L (98-107)
[2019-09-13 18:18] LABS: T4 FREE 0.93 ng/dL (0.76-1.46)
[2019-09-13 18:44] LABS: HEPATITIS B SURFACE ANTIGEN NEGATIVE
[2019-09-13 19:13] LABS: HEPATITIS A AB IGM NEGATIVE (NEGATIVE)
== END | disposition home or self-care (01) ==
LOC: LAB 17:26
PROVIDERS: ATTEND Internal Medicine
DX: J18.9 Pneumonia, unspecified organism (principal); I10 Essential (primary) hypertension; E11.9 Type 2 diabetes mellitus without complications; E78.5 Hyperlipidemia, unspecified
CPT/HCPCS: 36415; 71045; 80048; 80076; 83036; 84439; 84443; 86705; 86709; 86803; 87340

== ENCOUNTER → 2020-01-05 | Outpatient (CLI) | payer BC ==
[2020-01-05 17:38] LABS: BASOPHILS % 1.3 % (0.0-2.0); EOSINOPHILS % 3.1 % (0.0-5.0); HEMATOCRIT. 35.7 % (36.0-48.0); HEMOGLOBIN. 12.1 g/dL (12.0-16.0); LYMPHOCYTES % 44.6 % (20.0-50.0); MEAN CORPUSCULAR HEMOGLOBIN 31.8 pg (28.0-32.0); MEAN CORPUSCULAR VOLUME 94.1 fL (81.0-99.0); MEAN PLATELET VOLUME 8.5 fl (7.4-10.4); MONOCYTES % 6.3 % (2.0-8.0); NEUTROPHILS % 44.7 % (40.0-76.0); PLATELET 315 x1000/uL (130-400); RED BLOOD CELL COUNT 3.79 mill/uL (4.2-5.4)
[2020-01-05 17:46] LABS: CHLORIDE 109 mEq/L (98-107)
[2020-01-05 17:53] LABS: LDL CHOLESTEROL 126 mg/dL (5-100)
[2020-01-05 17:55] LABS: HDL CHOLESTEROL 57 mg/dL (40-59)
== END | disposition home or self-care (01) ==
LOC: LAB 17:03
PROVIDERS: ATTEND Internal Medicine
DX: I10 Essential (primary) hypertension (principal); E78.5 Hyperlipidemia, unspecified; E11.9 Type 2 diabetes mellitus without complications
CPT/HCPCS: 36415; 80053; 80061; 80076; 82306; 83036; 84436; 84443; 85025

== ENCOUNTER → 2020-03-16 | Outpatient (CLI) | payer BC ==
[2020-03-16 11:07] LABS: BASOPHILS % 1.1 % (0.0-2.0); EOSINOPHILS % 4.4 % (0.0-5.0); HEMATOCRIT. 35.4 % (36.0-48.0); HEMOGLOBIN. 12.5 g/dL (12.0-16.0); LYMPHOCYTES % 35.5 % (20.0-50.0); MEAN CORPUSCULAR VOLUME 93.9 fL (81.0-99.0); MEAN PLATELET VOLUME 8.1 fl (7.4-10.4); MONOCYTES % 5.8 % (2.0-8.0); NEUTROPHILS % 53.2 % (40.0-76.0); PLATELET 340 x1000/uL (130-400); RED BLOOD CELL COUNT 3.77 mill/uL (4.2-5.4); RED CELL DISTRIBUTION WIDTH 13.9 % (11.6-14.6)
[2020-03-16 11:14] LABS: CHLORIDE 105 mEq/L (98-107)
[2020-03-16 11:23] LABS: LDL CHOLESTEROL 80 mg/dL (5-100)
[2020-03-16 11:24] LABS: HDL CHOLESTEROL 70 mg/dL (40-59); T4 FREE 1.11 ng/dL (0.76-1.46)
[2020-03-17 09:06] LABS: *CREATININE RANDOM URINE 134.4 mg/dL (Not Estab.); MICROALBUMIN RANDOM URINE 3257.5 ug/mL (Not Estab.)
== END | disposition home or self-care (01) ==
LOC: LAB 10:26
PROVIDERS: ATTEND Internal Medicine
DX: I10 Essential (primary) hypertension (principal); E11.9 Type 2 diabetes mellitus without complications; E78.5 Hyperlipidemia, unspecified
CPT/HCPCS: 36415; 80053; 80061; 82043; 82248; 82570; 83036; 84439; 84443; 85025

== ENCOUNTER → 2020-10-06 | Outpatient (CLI) | payer BC ==
[2020-10-06 15:39] LABS: HEMATOCRIT 36.2 % (36.0-48.0); HEMOGLOBIN 12.6 g/dL (12.0-16.0); MEAN CORPUSCULAR HEMOGLOBIN 31.2 pg (28.0-32.0); MEAN CORPUSCULAR VOLUME 89.6 fL (81.0-99.0); PLATELET 593 x1000/uL (130-400); RED BLOOD CELL COUNT 4.04 mill/uL (4.2-5.4); RED CELL DISTRIBUTION WIDTH 13.2 % (11.6-14.6)
[2020-10-06 16:04] LABS: HCG SCREEN NEGATIVE; T4 FREE 1.37 ng/dL (0.76-1.46)
== END | disposition home or self-care (01) ==
LOC: LAB 15:01
PROVIDERS: ATTEND Internal Medicine
DX: E11.8 Type 2 diabetes mellitus with unspecified complications (principal); E03.9 Hypothyroidism, unspecified; E78.2 Mixed hyperlipidemia; I10 Essential (primary) hypertension
CPT/HCPCS: 36415; 80048; 83001; 84439; 84443; 84703; 85027

== ENCOUNTER → 2020-10-23 | Outpatient (CLI) | payer BC ==
[2020-10-23 13:28] LABS: T4 FREE 1.04 ng/dL (0.76-1.46)
== END | disposition home or self-care (01) ==
LOC: LAB 12:14
PROVIDERS: ATTEND Internal Medicine
DX: E11.8 Type 2 diabetes mellitus with unspecified complications (principal); E03.9 Hypothyroidism, unspecified; E78.2 Mixed hyperlipidemia
CPT/HCPCS: 36415; 80061; 82306; 83036; 84439; 84443

== ENCOUNTER → 2021-01-25 | Outpatient (CLI) | payer BC ==
[2021-01-25 17:06] LABS: BASOPHILS % 0.8 % (0.0-2.0); EOSINOPHILS % 2.3 % (0.0-5.0); HEMATOCRIT. 35.2 % (36.0-48.0); MEAN CORPUSCULAR HEMOGLOBIN 31.9 pg (28.0-32.0); MEAN CORPUSCULAR VOLUME 93.1 fL (81.0-99.0); MEAN PLATELET VOLUME 7.1 fl (7.4-10.4); MONOCYTES % 5.5 % (2.0-8.0); NEUTROPHILS % 70.4 % (40.0-76.0); PLATELET 403 x1000/uL (130-400); RED BLOOD CELL COUNT 3.78 mill/uL (4.2-5.4); RED CELL DISTRIBUTION WIDTH 13.4 % (11.6-14.6)
[2021-01-25 17:19] LABS: CHLORIDE 100 mEq/L (98-107)
[2021-01-25 17:28] LABS: HDL CHOLESTEROL 93 mg/dL (40-59)
[2021-01-25 17:29] LABS: LDL CHOLESTEROL 160 mg/dL (5-100)
== END | disposition home or self-care (01) ==
LOC: RAD 16:04
PROVIDERS: ATTEND Internal Medicine
DX: E11.9 Type 2 diabetes mellitus without complications (principal); R05 Cough; I10 Essential (primary) hypertension; E78.5 Hyperlipidemia, unspecified
CPT/HCPCS: 36415; 71045; 80053; 80061; 80076; 83036; 84436; 84443; 85025

== ENCOUNTER → 2021-06-06 | Outpatient (CLI) | payer BC | END | disposition home or self-care (01) | LOC: MAMMO 12:40 | PROVIDERS: ATTEND Internal Medicine | DX: Z12.31 Encounter for screening mammogram for malignant neoplasm of breast (principal) | CPT/HCPCS: 77067 ==

== ENCOUNTER → 2021-06-26 | Outpatient (CLI) | payer BC ==
[2021-06-26 10:14] LABS: BASOPHILS % 0.9 % (0.0-2.0); EOSINOPHILS % 4.3 % (0.0-5.0); HEMATOCRIT. 32.2 % (36.0-48.0); HEMOGLOBIN. 11.4 g/dL (12.0-16.0); MEAN CORPUSCULAR HEMOGLOBIN 32.5 pg (28.0-32.0); MEAN CORPUSCULAR VOLUME 92.1 fL (81.0-99.0); MEAN PLATELET VOLUME 7.5 fl (7.4-10.4); MONOCYTES % 8.2 % (2.0-8.0); NEUTROPHILS % 45.6 % (40.0-76.0); PLATELET 333 x1000/uL (130-400); RED CELL DISTRIBUTION WIDTH 14.1 % (11.6-14.6)
[2021-06-26 10:28] LABS: CHLORIDE 109 mEq/L (98-107)
[2021-06-26 10:35] LABS: LDL CHOLESTEROL 83 mg/dL (5-100)
[2021-06-26 10:36] LABS: HDL CHOLESTEROL 57 mg/dL (40-59)
[2021-06-26 10:50] LABS: FOLIC ACID (FOLATE) SERUM >20 ng/mL ng/mL (>5.38)
[2021-06-26 11:02] LABS: VITAMIN B12 SERUM 1305 pg/mL (211-911)
[2021-06-26 11:08] LABS: CORTISOL 12.7 ucg/dL; FERRITIN 108 ng/mL (10-291)
[2021-06-27 09:11] LABS: A/G RATIO 0.8 (0.7-1.7); ALBUMIN 3.2 g/dL (2.9-4.4); ALPHA-1-GLOBULIN 0.2 g/dL (0.0-0.4); ALPHA-2-GLOBULIN 1.2 g/dL (0.4-1.0); BETA GLOBULIN 1.1 g/dL (0.7-1.3); GAMMA GLOBULINS 1.5 g/dL (0.4-1.8); M-SPIKE Not Observed g/dL (Not Observed); THYROID PEROXIDASE ANTIBODY 13 IU/mL (0-34); TOTAL PROTEIN SERUM 7.2 g/dL (6.0-8.5); VITAMIN D 25-OH 26.7 ng/mL (30.0-100.0)
[2021-06-29 17:08] LABS: METHYLMALONIC ACID 349 nmol/L (0-378)
== END | disposition home or self-care (01) ==
LOC: LAB 09:24
PROVIDERS: ATTEND Internal Medicine Endocrinology, Diabetes & Metabolism
DX: E11.9 Type 2 diabetes mellitus without complications (principal); E03.9 Hypothyroidism, unspecified; E78.5 Hyperlipidemia, unspecified; R33.9 Retention of urine, unspecified
CPT/HCPCS: 36415; 80053; 80061; 82306; 82533; 82607; 82728; 82746; 83036; 83921; 84155; 84165; 84439; 84443; 84681; 85025; 86376

== ENCOUNTER 2021-08-04 01:14 | Emergency (ER) | payer BC ==
[~2021-08-04] VITALS: Ht 165.1 cm; Wt 57.0 kg
[2021-08-04] MEDS ORDERED: ACETAMINOPHEN 325MG TABLET PO ONE (02:00)
[2021-08-04] MEDS ORDERED: ACET-2708 MT (02:36)
[2021-08-04 04:41] VITALS: BP 138/72
== END 2021-08-04 04:42 | disposition home or self-care (01) ==
LOC: ER 01:14
DX: S83.91XA Sprain of unspecified site of right knee, initial encounter (principal); I10 Essential (primary) hypertension; E11.9 Type 2 diabetes mellitus without complications; Z13.9 Encounter for screening, unspecified; Z98.890 Other specified postprocedural states; W01.0XXA Fall on same level from slipping, tripping and stumbling without subsequent striking against object, initial encounter; Y93.89 Activity, other specified; Y92.89 Other specified places as the place of occurrence of the external cause; Y99.8 Other external cause status
CPT/HCPCS: 29505; 73562; 82962; 99283

== ENCOUNTER → 2021-08-22 | Outpatient (CLI) | payer BC ==
[~2021-08-22] MED LIST changes: +ACET-2708 MT
[2021-08-22 14:50] LABS: BASOPHILS % 1.3 % (0.0-2.0); EOSINOPHILS % 2.6 % (0.0-5.0); HEMOGLOBIN. 11.5 g/dL (12.0-16.0); LYMPHOCYTES % 26.2 % (20.0-50.0); MEAN CORPUSCULAR HEMOGLOBIN 31.8 pg (28.0-32.0); MEAN CORPUSCULAR VOLUME 93.7 fL (81.0-99.0); MEAN PLATELET VOLUME 7.9 fl (7.4-10.4); MONOCYTES % 7.6 % (2.0-8.0); NEUTROPHILS % 62.3 % (40.0-76.0); PLATELET 347 x1000/uL (130-400); RED BLOOD CELL COUNT 3.63 mill/uL (4.2-5.4); RED CELL DISTRIBUTION WIDTH 13.5 % (11.6-14.6)
[2021-08-22 15:13] LABS: CHLORIDE 106 mEq/L (98-107)
[2021-08-22 15:20] LABS: LDL CHOLESTEROL 68 mg/dL (5-100)
[2021-08-22 15:21] LABS: HDL CHOLESTEROL 59 mg/dL (40-59)
== END | disposition home or self-care (01) ==
LOC: LAB 14:08
PROVIDERS: ATTEND Internal Medicine Endocrinology, Diabetes & Metabolism
DX: E11.65 Type 2 diabetes mellitus with hyperglycemia (principal); E55.9 Vitamin D deficiency, unspecified; E78.49 Other hyperlipidemia; E03.9 Hypothyroidism, unspecified; E11.21 Type 2 diabetes mellitus with diabetic nephropathy; R63.4 Abnormal weight loss
CPT/HCPCS: 36415; 80053; 80061; 82652; 84439; 84443; 85025

== ENCOUNTER → 2021-08-24 | Outpatient (CLI) | payer BC | END | disposition home or self-care (01) | LOC: US 09:39 | PROVIDERS: ATTEND Internal Medicine Endocrinology, Diabetes & Metabolism | DX: N28.1 Cyst of kidney, acquired (principal); R63.4 Abnormal weight loss; E11.65 Type 2 diabetes mellitus with hyperglycemia | CPT/HCPCS: 76700 ==

== ENCOUNTER 2021-10-04 18:22 | Emergency (ER) | payer BC ==
[~2021-10-04] VITALS: Ht 165.1 cm; Wt 57.0 kg
[2021-10-04] MEDS ORDERED: DEXTROSE 50% WATER 50ML SYRINGE IV ONE (19:00)
[2021-10-04 19:17] LABS: BASOPHILS % 0.8 % (0.0-2.0); EOSINOPHILS % 1.6 % (0.0-5.0); HEMATOCRIT. 35.3 % (36.0-48.0); HEMOGLOBIN. 11.7 g/dL (12.0-16.0); LYMPHOCYTES % 23.9 % (20.0-50.0); MEAN CORPUSCULAR HEMOGLOBIN 31.3 pg (28.0-32.0); MEAN CORPUSCULAR VOLUME 94.5 fL (81.0-99.0); MEAN PLATELET VOLUME 8.3 fl (7.4-10.4); MONOCYTES % 5.6 % (2.0-8.0); NEUTROPHILS % 68.1 % (40.0-76.0); PLATELET 354 x1000/uL (130-400); RED BLOOD CELL COUNT 3.74 mill/uL (4.2-5.4); RED CELL DISTRIBUTION WIDTH 13.8 % (11.6-14.6)
[2021-10-04 19:23] LABS: CHLORIDE 111 mEq/L (98-107)
[2021-10-04 22:38] VITALS: BP 166/75
== END 2021-10-04 23:20 | disposition home or self-care (01) ==
LOC: ER 18:22
DX: T38.3X1A Poisoning by insulin and oral hypoglycemic [antidiabetic] drugs, accidental (unintentional), initial encounter (principal); R42 Dizziness and giddiness; R11.0 Nausea; I10 Essential (primary) hypertension; Y92.89 Other specified places as the place of occurrence of the external cause; Z79.4 Long term (current) use of insulin
CPT/HCPCS: 36415; 80053; 82962; 83605; 84484; 85025; 96374; 99283

== ENCOUNTER 2021-11-11 03:32 | Emergency (ER) | payer BC ==
[2021-11-11 04:00] LABS: BASOPHILS % 0.9 % (0.0-2.0); EOSINOPHILS % 3.1 % (0.0-5.0); HEMOGLOBIN. 12.2 g/dL (12.0-16.0); MEAN CORPUSCULAR HEMOGLOBIN 31.6 pg (28.0-32.0); MEAN CORPUSCULAR VOLUME 95.7 fL (81.0-99.0); MEAN PLATELET VOLUME 9.6 fl (7.4-10.4); MONOCYTES % 6.4 % (2.0-8.0); NEUTROPHILS % 35.6 % (40.0-76.0); PLATELET 262 x1000/uL (130-400); RED BLOOD CELL COUNT 3.86 mill/uL (4.2-5.4); RED CELL DISTRIBUTION WIDTH 13.6 % (11.6-14.6)
[2021-11-11] MEDS ORDERED: SODIUM CHLORIDE 0.9% 1,000 ML IV ONE (04:00)
[2021-11-11] MEDS ORDERED: MORPHINE SULFATE 4 MG/ML CPJ (NOT FOR IM USE) IV ONE (04:00)
[2021-11-11] MEDS ORDERED: ONDANSETRON HCL 4MG/2ML INJ IV ONE (04:00)
[2021-11-11 04:32] LABS: CHLORIDE 104 mEq/L (98-107)
[2021-11-11 04:37] LABS: ETHANOL BLOOD < 10 mg/dL
[2021-11-11] MEDS ORDERED: ASPIRIN 300MG SUPP PR ONE (05:00)
[2021-11-11] MEDS ORDERED: PIPERACILLIN/TAZOBACTAM 3.375GM/50ML PREMIX IV ONE (05:15)
[2021-11-11] MEDS ORDERED: INSULIN REGULAR (DRIP) 100 UNITS in SODIUM CHLORIDE 0.9% 99 ML IV ONE (05:15)
[2021-11-11] MEDS ORDERED: VANCOMYCIN 1 G PREMIX 200 ML IV SCH (06:30)
[2021-11-11] MEDS ORDERED: AMIODARONE HCL 50MG/ML 3ML VIAL IV ONE (08:29)
[2021-11-11] MEDS ORDERED: ETOMIDATE 2MG/ML 10ML VIAL IV ONE (08:29)
[2021-11-11] MEDS ORDERED: EPINEPHRINE 0.1MG/ML (1:10,000) 10ML SYR ONE (08:29)
[2021-11-11] MEDS ORDERED: CALCIUM CHLORIDE 1GM/10ML SYR IV ONE (08:29)
[2021-11-11] MEDS ORDERED: SODIUM BICARBONATE 8.4% 1 MEQ/ML 50ML SYR IV ONE (08:29)
== END 2021-11-11 05:37 ==
LOC: ER 03:32 → CANRESERV 05:33 → ENRESERV 05:33 → ER 05:37 → CMPBEDREQ 11-12 09:01
DX: R55 Syncope and collapse (principal); R45.1 Restlessness and agitation; R07.89 Other chest pain; E11.9 Type 2 diabetes mellitus without complications; I10 Essential (primary) hypertension; Z79.899 Other long term (current) drug therapy; Z20.822 Contact with and (suspected) exposure to COVID-19
CPT/HCPCS: 36415; 80053; 80307; 80320; 80329; 82010; 82140; 83880; 84484; 85025; 87426; 93005; 99285; J0282; J1815; J3490; J7030; J7050; G0480